=== PATIENT | male | born 1995 | race Caucasian/White ===

== ENCOUNTER 2021-12-28 13:08 | Emergency (ER) | payer OTHER, SELFPAY ==
[2021-12-28 13:11] VITALS: BP 102/72; PULSE 93; RESP 18; TEMP 36.3; O2SAT 99
--- NOTE | 2021-12-28 14:05 | ED.SKABFB ---
HPI - Skin/Abscess/Foreign Bdy General Chief complaint: Skin/Abscess/Foreign Body Stated complaint: tick bite in October Time Seen by Provider: 12/28/21 13:53 History of Present Illness HPI narrative: 26-year-old male presents to the emergency room for evaluation of a tick bite sustained 2 months ago. Patient states that he pulled a tick off of himself in his left axillary region back in October. Patient states he does not know how long the tick was embedded in him. Patient notes that he has had a small bump on his left axilla since then. Patient denies any rash, surrounding swelling, pain at the site, weakness, headaches, or fevers. Related Data Allergies Allergy/AdvReac Type Severity Reaction Status Date / Time No Known Allergies Allergy Unverified 09/18/18 12:28 Review of Systems Review of Systems: CONSTITUTIONAL: Denies fever, chills, or sweats. EYES: Denies visual changes, redness, or discharge. ENT: Denies rhinorrhea, congestion, sore throat, or otalgia. CARDIOVASCULAR: Denies chest pain, palpitations, or edema. RESPIRATORY: Denies cough or dyspnea. GASTROINTESTINAL: Denies abdominal pain, nausea, vomiting, or diarrhea. GENITOURINARY: Denies dysuria or hematuria. SKIN: Denies rash or itching. MUSCULOSKELETAL: Denies back pain, joint pain, or myalgia. NEUROLOGIC: Denies headache, numbness, dizziness, or weakness. PSYCHIATRIC: Denies anxiety or depression. Exam Narrative: GENERAL: Well-appearing, well-nourished, and in no acute distress. HEAD: Normocephalic, atraumatic. EYES: PERRLA and EOMI. ENT: Nares clear, no rhinorrhea or epistaxis. Mucous membranes moist. Oropharynx without tonsillar hypertrophy exudate or other lesions. Bilateral TMs pearly lindsay nonbulging NECK: Supple. No adenopathy or masses. No carotid bruits or JVD CHEST: Clear to auscultation. No respiratory distress. No wheezes rales or rhonchi HEART: Regular rate and rhythm. No murmur heard. Normal peripheral pulses. ABDOMEN: Soft, nontender, nondistended, normal active bowel sounds. EXTREMITIES: Normal range of motion. No edema. SKIN: Warm, dry, no rash. No evidence of a target site in the left axilla, no soft tissue swelling, no erythema, no lymphangitic spread NEURO: No focal deficits. Alert and oriented x3. PSYCH: Normal mood and affect. Course Vital Signs Vital signs: Vital Signs Temperature 36.3 C L 12/28/21 13:11 Pulse Rate 93 12/28/21 13:11 Respiratory Rate 18 12/28/21 13:11 Blood Pressure 102/72 12/28/21 13:11 Pulse Oximetry 99 12/28/21 13:11 Oxygen Delivery Room Air 12/28/21 13:11 Temperature 36.3 C L 12/28/21 13:11 Pulse Rate 93 12/28/21 13:11 Respiratory Rate 18 12/28/21 13:11 Blood Pressure 102/72 12/28/21 13:11 Pulse Oximetry 99 12/28/21 13:11 Oxygen Delivery Room Air 12/28/21 13:11 MDM - Skin/Abscess/Foreign Bdy Lab Data Labs: Lab Results 12/28/21 12/28/21 Range/Units 14:14 14:14 E. chaffeensis IgG Ab Pending E. chaffeensis IgM Ab Pending E. chaffeensis Interp Pending E. chaffeensis Comment Pending Rickettsia IgG Ab Pending Rickettsia IgM Ab Pending Discharge Plan Discharge Clinical Impression: Tick bite of axillary region Patient Disposition: Home, Self-Care Condition: Stable Instructions: Antibiotic Form, Tick Bite (ED) Prescriptions: New doxycycline monohydrate 100 mg capsule 100 mg PO BID 10 Days Qty: 20 0RF Follow-up/Referrals: PHYSICIAN,SCHOOL AIDE [Non-Staff] - Time of Disposition: 14:05
== END 2021-12-28 14:59 | disposition home or self-care (01) ==
LOC: ANHED 14:26
PROVIDERS: Emergency Provider Nurse Practitioner Family; PCP Family Medicine
DX: S40.862A Insect bite (nonvenomous) of left upper arm, initial encounter (principal); W57.XXXA Bitten or stung by nonvenomous insect and other nonvenomous arthropods, initial encounter
CPT/HCPCS: 36415; 86666; 86757; 99283

== ENCOUNTER 2022-04-10 05:40 | Emergency (ER) | payer OTHER, SELFPAY ==
[2022-04-10 05:45] VITALS: BP 136/89; PULSE 58; RESP 16; TEMP 36.5; O2SAT 100
--- NOTE | 2022-04-10 05:56 | ED.GENADULT ---
HPI - General Adult General Chief complaint: Dental/Oral Stated complaint: dental pain, abcess Time Seen by Provider: 04/10/22 05:44 History of Present Illness HPI narrative: 26-year-old male with history of tooth infection presented to the emergency department for evaluation of worsening dental pain and facial swelling. Patient states the tooth initially became infected in June. Patient did have follow-up with a dentist and had a root canal started. Patient states that he was unable to afford the rest of the procedures. Patient did find a dentist that takes his insurance and he is scheduled for follow-up again. Patient states that approximately 2 days ago he began having worsening facial pain and facial swelling. Related Data Allergies Allergy/AdvReac Type Severity Reaction Status Date / Time No Known Allergies Allergy Verified 04/10/22 05:52 Review of Systems Review of Systems: CONSTITUTIONAL: Denies fever, chills, or sweats. EYES: Denies visual changes, redness, or discharge. ENT: Dental pain, see HPI CARDIOVASCULAR: Denies chest pain, palpitations, or edema. RESPIRATORY: Denies cough or dyspnea. GASTROINTESTINAL: Denies abdominal pain, nausea, vomiting, or diarrhea. GENITOURINARY: Denies dysuria or hematuria. SKIN: Denies rash or itching. MUSCULOSKELETAL: Denies back pain, joint pain, or myalgia. NEUROLOGIC: Denies headache, numbness, or weakness. Exam Narrative: APPEARANCE: Well appearing, no pain, no distress, well-nourished. HEAD: normocephalic, atraumatic. Right-sided facial swelling. No dental abscess visualized. Patient does have dental caries EYES: PERRLA/EOMI, conjunctivae clear. NOSE: Normal no drainage THROAT: Pharynx clear, no exudate. NECK: Supple. No adenopathy, no masses. RESPIRATORY: Airway patent, respirations nonlabored. Clear to auscultation bilaterally, no rales, rhonchi, wheezing. CARDIOVASCULAR: Regular rate and rhythm without murmurs rubs or gallops. ABDOMINAL: Soft, nontender, nondistended, normal bowel sounds MUSCULOSKELETAL: Moves all extremities. Strength/ROM intact, No edema, No calf tenderness. NEURO: Alert. Cranial nerves II through XII intact. Grossly intact SKIN: Warm, dry. Normal Color Course Course Emergency Course: Patient was started on antibiotics. No abscess amenable to drainage. Patient was encouraged to continue to have follow-up with his dentist. Vital Signs Vital signs: Vital Signs Temperature 97.7 F 04/10/22 05:45 Pulse Rate 58 L 04/10/22 05:45 Respiratory Rate 16 04/10/22 05:45 Blood Pressure 136/89 04/10/22 05:45 Pulse Oximetry 100 04/10/22 05:45 Oxygen Delivery Room Air 04/10/22 05:45 Temperature 97.7 F 04/10/22 05:45 Pulse Rate 58 L 04/10/22 05:45 Respiratory Rate 16 04/10/22 05:45 Blood Pressure 136/89 04/10/22 05:45 Pulse Oximetry 100 04/10/22 05:45 Oxygen Delivery Room Air 04/10/22 05:45 Medical Decision Making Vital Signs Vital Signs: Vital Signs Temperature 97.7 F 04/10/22 05:45 Pulse Rate 58 L 04/10/22 05:45 Respiratory Rate 16 04/10/22 05:45 Blood Pressure 136/89 04/10/22 05:45 Pulse Oximetry 100 04/10/22 05:45 Oxygen Delivery Room Air 04/10/22 05:45 Temperature 97.7 F 04/10/22 05:45 Pulse Rate 58 L 04/10/22 05:45 Respiratory Rate 16 04/10/22 05:45 Blood Pressure 136/89 04/10/22 05:45 Pulse Oximetry 100 04/10/22 05:45 Oxygen Delivery Room Air 04/10/22 05:45 Discharge Plan Discharge Clinical Impression: Toothache, Dental caries Patient Disposition: Home, Self-Care Condition: Stable Instructions: Antibiotic Form Additional Instructions: Antibiotic as directed until completed. Continue to have close follow-up with your dentist as scheduled. Tylenol and ibuprofen for pain control. Prescriptions: New amoxicillin-pot clavulanate 875-125 mg tablet 1 tablet PO Q12H Qty: 14 0RF hydrocodone-acetaminophen 5-325 mg tablet 1 tab
[2022-04-10] MEDS: HYDROcodone/acetaminophen (*CRX) 5-325 MG TABLET 1 TAB PO (06:09)
[2022-04-10] MEDS: AMOXICILLIN/CLAVULANATE K 875-125 MG TAB 1 TABLET PO (06:09)
== END 2022-04-10 06:32 | disposition home or self-care (01) ==
LOC: ANHED 06:10
PROVIDERS: Emergency Provider Emergency Medicine
DX: K08.89 Other specified disorders of teeth and supporting structures (principal); K02.9 Dental caries, unspecified
CPT/HCPCS: 99283; A9270